=== PATIENT | female | born 1990 | race Caucasian/White ===

== ENCOUNTER 2021-09-23 20:16 | Emergency (ER) | payer OTHER ==
[~2021-09-23] VITALS: Ht 170.2 cm; Wt 59.0 kg
[2021-09-23 20:20] VITALS: BP 118/69
[2021-09-23] MEDS ORDERED: LIDOCAINE 1%/EPI 1:100,000 20 ML VIAL. IJ ONE (21:00)
--- NOTE | 2021-09-23 21:18 | PHYS DOC ---
Past History Additional Past Medical Histor: Pulmonary htn, rheynauds, lupus Past Surgical History: Other Additional Past Surgical Histo: 2 rt knee sx, 1 left sx Alcohol Use: None General Adult EDM: Chief Complaint: LACERATION/AVULSION HPI: HPI: Patient is a 31 year old female who presents with laceration/partial avulsion on the thenar eminence of her left hand. Patient states she was using a mandolin to slice vegetables without the guard, when she advanced her hand onto the blade. Patient reports past medical history of Raynaud's, pulmonary hypertension, lupus. Patient's tetanus vaccine was updated 3 years ago. She has no other complaints at this time. Review of Systems: Review of Systems: ROS negative except as mentioned in HPI. Current Medications: Current Meds: Current Medications Medications (Trade) Dose Ordered Sig/Krupa Start Time Stop Time Status Last Admin Dose Admin Lidocaine/ Epinephrine (Xylocaine 1%-Epi 1:100,000) 20 ml 1X ONCE 09/23/21 21:00 09/23/21 21:01 UNV Allergies: Allergies: Allergies Coded Allergies Type Severity Reaction Last Updated Verified Penicillins Allergy Unknown 09/23/21 Yes Physical Exam: PE: Constitutional: Well developed, well nourished, no acute distress, non-toxic appearance. Cardiovascular: Heart rate regular rhythm, no murmur. Lungs & Thorax: Bilateral breath sounds without wheezes, rales or rhonchi. Skin: 8 mm x 1.5 cm L-shaped partial avulsion to the thenar eminence of the left hand. Skin otherwise warm, dry, no erythema, no rash. Extremities: Tender surrounding area of partial avulsion, otherwise no cyanosis, no clubbing, ROM intact, no edema. Current Patient Data: Vital Signs: Vital Signs Date Time Temp Pulse Resp B/P (MAP) Pulse Ox O2 Delivery O2 Flow Rate FiO2 09/23/21 20:20 98.3 72 18 118/69 (85) 100 Room Air Heart Score: C/O Chest Pain: No Course & Med Decision Making: Course & Med Decision Making Pertinent Labs and Imaging studies reviewed. (See chart for details) Pressure dressing applied to wound to help stop bleeding. There is no concern for retained foreign body, and patient's tetanus status was updated 3 years ago. Laceration will be repaired and patient will be discharged home with wound care instructions. Patient understands and is agreeable to discharge plan. Dragon Disclaimer: Dragon Disclaimer: This electronic medical record was generated, in whole or in part, using a voice recognition dictation system. Laceration Repair Lac Repair Indication: Laceration to thenar eminence of left hand Procedure: The patient was placed in the appropriate position and anesthesia around the 2 mL 1% epinephrine with lidocaine. The area was then irrigated with high-pressure normal saline and cleansed with Betadine solution. The laceration was closed with 5 simple interrupted sutures using 5-0 nylon. The wound area was then dressed with nonadhesive bandage. Total repaired wound length: Approximately 3 cm. Other Items: The patient tolerated the procedure very well. Complications: No complications. Departure Departure: Impression: Primary Impression: Laceration of left palm without complication Qualified Codes: S61.412A - Laceration without foreign body of left hand, initial encounter Disposition: HOME / SELF CARE / HOMELESS Condition: STABLE Patient Instructions: Sutured Wound Care, [id number] Additional Instructions: Keep the wound dry for 24 hours, then clean gently with soap and water daily. For swelling and discomfort, you may alternate between acetaminophen and NSAID of your choice every 4 hours. Sutures may be removed in a period of 7-10 days. You may return here to the department, visit your primary care physician, or visit urgent care. Return to the emergency department for signs of infection including fever, increased swelling, redness/warmth, pussy drainage. JAKE PINTO Sep 23, 2021 21:18
== END 2021-09-23 21:57 | disposition home or self-care (01) ==
LOC: ER 20:16
DX: S61.412A Laceration without foreign body of left hand, initial encounter (principal); Z88.0 Allergy status to penicillin; W27.4XXA Contact with kitchen utensil, initial encounter; Y93.89 Activity, other specified; Y92.89 Other specified places as the place of occurrence of the external cause; Y99.8 Other external cause status
CPT/HCPCS: 12002; 99282